=== PATIENT | male | born 1965 | race Caucasian/White ===

== ENCOUNTER 2017-07-13 18:09 | Observation (INO) | payer MEDICARE, MEDICAID ==
[~2017-07-13] VITALS: Ht 195.6 cm; Wt 65.5 kg
[~2017-07-13 18:09] MED LIST: ASPI81 PO; CYCL1PAK PO; METO50TA PO; ZOCO40TA PO
[2017-07-13 18:20] VITALS: BP 177/91; PULSE 110; RESP 32; TEMP 99.9; O2SAT 100; O2SAT 97
[2017-07-13] MEDS ORDERED: SODIUM CHLOR 0.9% 1000 ML INJ 1,000 ML IV ONE (18:27)
[2017-07-13] MEDS ORDERED: SODIUM CHLOR 0.9% 1000 ML INJ 800 ML IV ONE (18:27)
[2017-07-13] MEDS ORDERED: ACETAMINOPHEN 325 MG TAB PO ONE (18:30)
--- NOTE | 2017-07-13 18:32 | PD ---
HPI Chief Complaint: Respiratory Symptoms Time Seen by Provider: 18:21 Travel History International Travel<30 days: No Contact w/Intl Traveler<30days: No Traveled to known affect area: No History of Present Illness HPI 52-year-old male with history of muscular dystrophy, wheelchair bound, CAD, brought in by ambulance from home for evaluation of cough, shortness of breath, chest pain, generalized malaise. Patient believes that he may have the flu. He reports 1 week of cough. Today while he was coughing he experienced some sharp chest pain. He states that this has improved. He feels as though he cannot take a deep breath. Cough is productive of yellowish sputum. No hemoptysis. He believes he may have a fever. States his at home is sick with upper respiratory symptoms. PFSH Past Medical History Arthritis: No Asthma: No Autoimmune Disease: No Blood Disorders: No Anxiety: No Depression: No Heart Rhythm Problems: No Cancer: No Cardiovascular Problems: Yes High Cholesterol: No Chemotherapy: No Chest Pain: No Congestive Heart Failure: No COPD: No Cerebrovascular Accident: Yes Diabetes: No Diminished Hearing: No Endocrine: No GERD: No Glaucoma: No Genitourinary: No Headaches: Yes Hepatitis: No Hiatal Hernia: No Hypertension: No Immune Disorder: No Implanted Vascular Access Dvce: Yes Kidney Stones: No Musculoskeletal: Yes () Neurologic: Yes Psychiatric: No Reproductive: No Respiratory: No Myocardial Infarction: Yes Radiation Therapy: No Renal Failure: No Sickle Cell Disease: No Sleep Apnea: Yes Thyroid Disease: No Ulcer: No Tetanus Vaccination: Unknown Influenza Vaccination: No Past Surgical History Abdominal Surgery: No AICD: No Appendectomy: No Arteriovenous Shunt: No Cardiac Surgery: No Cholecystectomy: No Ear Surgery: No Endocrine Surgery: No Eye Surgery: No Genitourinary Surgery: No Gynecologic Surgery: No Insulin Pump: No Joint Replacement: Yes (R LEG) Oral Surgery: No Pacemaker: No Thoracic Surgery: No Other Surgery: Yes (Lt. hand ganglion ) Social History Alcohol Use: No Tobacco Use: Yes (1 PPD) Substance Use: Yes (Marijuana) Allergies-Medications (Allergen,Severity, Reaction): Coded Allergies: tramadol (Verified Allergy, Intermediate, Hives, 07/13/17) penicillin G (Verified Allergy, Unknown, States doesn't know, 07/13/17) Reported Meds & Prescriptions Reported Meds & Active Scripts Active Reported Zofran (Ondansetron HCl) 4 Mg Tab 4 Mg PO Q6HR PRN Metoprolol Tartrate 25 Mg Tab 25 Mg PO BID Baclofen 20 Mg Tab 20 Mg PO QID Flexeril (Cyclobenzaprine HCl) 10 Mg Tab 10 Mg PO DAILY Ranitidine (Ranitidine HCl) 300 Mg Tab 300 Mg PO DAILY Gabapentin 600 Mg Tab 600 Mg PO BID Sucralfate 1 Gram Tab 1 Gm PO TID on empty stomach Pravastatin 40 Mg Tab 40 Mg PO DAILY Omeprazole 20 Mg Tab 20 Mg PO DAILY Review of Systems Except as stated in HPI: all other systems reviewed are Neg Physical Exam Narrative GENERAL: Well-developed, well-nourished, awake, tachypneic SKIN: Focused skin assessment warm/dry. HEAD: Atraumatic. Normocephalic. EYES: Strabismus with right eye looking laterally, right cornea is clouded. No scleral icterus. No injection or drainage. ENT: Mucous membranes pink and moist. NECK: Trachea midline. No JVD. No nuchal rigidity. CARDIOVASCULAR: Tachycardic, rate 110, regular. RESPIRATORY: Tachypneic. Speaking a few words at a time. Clear to auscultation. Breath sounds equal bilaterally. GASTROINTESTINAL: Abdomen soft, non-tender, nondistended. MUSCULOSKELETAL: No obvious deformities. No clubbing. No cyanosis. No edema. Bilateral calves are supple, nontender. NEUROLOGICAL: Awake and alert. No obvious cranial nerve deficits. Generalized motor weakness with legs worse than arms. Normal speech. PSYCHIATRIC: Appropriate mood and affect; insight and judgment normal. Data Data Last Documented VS Vital Signs Date Time Temp Pulse Resp B/P (MAP) Pulse Ox O2 Delivery O2 Flow Rate FiO2 07/13/17 19:03 98 119/74 (89) 98 Room Air 07/13/17 18:20 32 07/13/17 18:20 99.9 Orders Orders Sepsis Workup Initiated (07/13/17 ) Complete Blood Count With Diff (07/13/17 18:27) Comprehensive Metabolic Panel (07/13/17 18:27) Prothrombin Time / Inr (Pt) (07/13/17 18:27) Act Partial Throm Time (Ptt) (07/13/17 18:27) Lactic Acid Sepsis Protocol (07/13/17 18:27) Ckmb (Isoenzyme) Profile (07/13/17 18:27) Troponin I (07/13/17 18:27) Urinalysis - C+S If Indicated (07/13/17 18:27) Influenzae A/B Antigen (07/13/17 18:) Blood Culture (07/13/17 18:27) Chest, Single Ap (07/13/17 18:27) Ecg Monitoring (07/13/17 18:27) Iv Access Insert/Monitor (07/13/17 18:) Oximetry (07/13/17 18:) Acetaminophen (Tylenol) (07/13/17 18:30) Sodium Chlor 0.9% 1000 Ml Inj (Ns 1000 M (07/13/17 18:27) Sodium Chlor 0.9% 1000 Ml Inj (Ns 1000 M (07/13/17 18:27) Ceftriaxone Inj (Rocephin Inj) (07/13/17 19:45) Azithromycin Inj (Zithromax Inj) (07/13/17 19:45) Albuterol-Ipratropium Neb (Duoneb Neb) (07/13/17 19:45) Admit Order (Ed Use Only) (07/13/17 19:48) Labs Laboratory Tests Test 07/13/17 18:30 07/13/17 18:50 White Blood Count 13.1 TH/MM3 Red Blood Count 5.07 MIL/MM3 Hemoglobin 15.7 GM/DL Hematocrit 45.8 % Mean Corpuscular Volume 90.3 FL Mean Corpuscular Hemoglobin 31.0 PG Mean Corpuscular Hemoglobin Concent 34.3 % Red Cell Distribution Width 13.2 % Platelet Count 287 TH/MM3 Mean Platelet Volume 9.6 FL Neutrophils (%) (Auto) 80.8 % Lymphocytes (%) (Auto) 9.1 % Monocytes (%) (Auto) 8.9 % Eosinophils (%) (Auto) 0.9 % Basophils (%) (Auto) 0.3 % Neutrophils # (Auto) 10.6 TH/MM3 Lymphocytes # (Auto) 1.2 TH/MM3 Monocytes # (Auto) 1.2 TH/MM3 Eosinophils # (Auto) 0.1 TH/MM3 Basophils # (Auto) 0.0 TH/MM3 CBC Comment DIFF FINAL Differential Comment Prothrombin Time 10.7 SEC Prothromb Time International Ratio 1.1 RATIO Activated Partial Thromboplast Time 32.1 SEC Blood Urea Nitrogen 15 MG/DL Creatinine 0.85 MG/DL Random Glucose 95 MG/DL Total Protein 6.8 GM/DL Albumin 3.2 GM/DL Calcium Level 8.4 MG/DL Alkaline Phosphatase 73 U/L Aspartate Amino Transf (AST/SGOT) 9 U/L Alanine Aminotransferase (ALT/SGPT) 9 U/L Total Bilirubin 0.6 MG/DL Sodium Level 135 MEQ/L Potassium Level 3.5 MEQ/L Chloride Level 105 MEQ/L Carbon Dioxide Level 16.9 MEQ/L Anion Gap 13 MEQ/L Estimat Glomerular Filtration Rate 95 ML/MIN Total Creatine Kinase 49 U/L Troponin I LESS THAN 0.02 NG/ML Urine Collection Type CLEAN CATCH Urine Color YELLOW Urine Turbidity CLEAR Urine pH 5.5 Urine Specific [place] 1.020 Urine Protein NEG mg/dL Urine Glucose (UA) NEG mg/dL Urine Ketones 80 OR GREATER mg/dL Urine Occult Blood TRACE Urine Nitrite NEG Urine Bilirubin NEG Urine Urobilinogen 0.2 MG/DL Urine Leukocyte Esterase TRACE Urine RBC 0-3 /hpf Urine WBC 0-2 /hpf Urine Squamous Epithelial Cells 0-5 /hpf Urine Amorphous Sediment SMALL Urine Mucus MOD /lpf Microscopic Urinalysis Comment CULT NOT INDICATED Lactic Acid Level 3.8 mmol/L MDM Medical Decision Making Medical Screen Exam Complete: Yes Emergency Medical Condition: Yes Interpretation(s) EKG: Sinus, rate 108, normal axis, incomplete RBBB, no acute ischemic abnormality. Differential Diagnosis Sepsis, pneumonia, influenza, ACS, PE, pericarditis, metabolic abnormality Narrative Course Initial vital signs show heart rate 110, blood pressure 177/91, pulse ox 100% on room air, oral temperature 99.9F. CBC: WBC 13.1, hemoglobin 15.7, hematocrit 45.8, platelets 287, neutrophils 81%. CMP is essentially unremarkable. Cardiac enzymes are negative. Lactic acid is 3.8. UA shows 80 or greater ketones, not suggestive of UTI. Influenza is negative. Chest x-ray: No acute disease. The patient was given 2 L normal saline IV and Tylenol with improvement in heart rate to 95. While in the emergency department his respiratory status has significantly improved. There are no wheezes on exam. He has been coughing. He likely has bronchitis. He meets sepsis criteria. He will be started on IV Rocephin and IV azithromycin and will be provided a DuoNeb treatment. He will be admitted for further treatment and evaluation. Case discussed with hospitalist Dr. Garcia who will admit the patient to her service. Diagnosis Primary Impression: Sepsis Qualified Codes: A41.9 - Sepsis, unspecified organism Additional Impression: Bronchitis Admitting Information Admitting Physician Requests: it Dereje Muller MD Jul 13, 2017 18:31
[2017-07-13] MEDS ORDERED: RANI300T PO (18:33)
[2017-07-13] MEDS ORDERED: SUCR1TAB PO (18:33)
[2017-07-13] MEDS ORDERED: CYCL10TA PO (18:33)
[2017-07-13] MEDS ORDERED: GABA600T PO (18:33)
[2017-07-13] MEDS ORDERED: METO25TA3 PO (18:33)
[2017-07-13] MEDS ORDERED: ZOFR4TAB PO (18:33)
[2017-07-13] MEDS ORDERED: PRAV40TA2 PO (18:33)
[2017-07-13] MEDS ORDERED: BACL20TA PO (18:33)
[2017-07-13] MEDS ORDERED: OMEP20TA93 PO (18:33)
[2017-07-13 18:45] VITALS: O2SAT 100
[2017-07-13 19:03] VITALS: BP 119/74; PULSE 98; O2SAT 98
[2017-07-13 19:08] LABS: AUTOMATED NEUTROPHIL # 10.6 TH/MM3 (1.8-7.7); BASOPHIL % 0.3 % (0.0-2.0); EOSINOPHIL # 0.1 TH/MM3 (0-0.4); EOSINOPHIL % 0.9 % (0.0-4.0); HEMATOCRIT 45.8 % (39.0-51.0); HEMOGLOBIN 15.7 GM/DL (13.0-17.0); LYMPH % 9.1 % (9.0-44.0); LYMPHOCYTE # 1.2 TH/MM3 (1.0-4.8); MEAN CELL VOLUME 90.3 FL (80.0-100.0); MEAN CORPUSCULAR HGB CONC 34.3 % (32.0-36.0); MEAN PLATELET VOLUME 9.6 FL (7.0-11.0); MONO % 8.9 % (0.0-8.0); MONOCYTE # 1.2 TH/MM3 (0-0.9); NEUT % 80.8 % (16.0-70.0); PLATELET COUNT 287 TH/MM3 (150-450); RED BLOOD COUNT 5.07 MIL/MM3 (4.50-5.90); RED CELL DISTRIBUTION WIDTH 13.2 % (11.6-17.2); WHITE BLOOD COUNT 13.1 TH/MM3 (4.0-11.0)
[2017-07-13 19:08] LABS: BLOOD, URINE TRACE (NEG); GLUCOSE,URINE NEG (NEG); KETONE, URINE 80 OR GREATER mg/dL (NEG); NITRITE,URINE NEG (NEG); PH, URINE 5.5 (5.0-8.5); URINE COLOR YELLOW (YELLW/STRAW); URINE LEUKOCYTE ESTERASE TRACE (NEG)
[2017-07-13 19:17] LABS: CHLORIDE 105 MEQ/L (98-107); SODIUM (NA) 135 MEQ/L (136-145)
--- NOTE | 2017-07-13 19:17 | RADRPT ---
EXAM DATE/TIME: 07/13/2017 18:29 [facility] COMPARISON: No previous studies available for comparison. INDICATIONS : Fever, cough, shortness of breath. MEDICAL HISTORY : Myocardial infarction. Muscular dystrophy. SURGICAL HISTORY : None. ENCOUNTER: Initial ACUITY: 1 week PAIN SCORE: 0/10 LOCATION: Bilateral chest FINDINGS: A single view of the chest demonstrates the lungs to be symmetrically aerated without evidence of mas s, infiltrate or effusion. The cardiomediastinal contours are unremarkable. Osseous structures are intact. CONCLUSION: No acute disease. Jason Arora MD on July 13, 2017 at 19:11 Board Certified Radiologist. This report was verified electronically.
[2017-07-13 19:19] LABS: LACTIC ACID SEPSIS PROTOCOL 3.8 mmol/L (0.4-2.0)
[2017-07-13 19:21] LABS: ALBUMIN 3.2 GM/DL (3.4-5.0); BICARBONATE 16.9 MEQ/L (21.0-32.0); BLOOD UREA NITROGEN 15 MG/DL (7-18); CALCIUM 8.4 MG/DL (8.5-10.1); GLUCOSE,RANDOM 95 MG/DL (74-106)
[2017-07-13 19:22] LABS: BILIRUBIN, URINE NEG (NEG)
[2017-07-13 19:23] LABS: INTERNATIONAL NORMALIZED RATIO 1.1 RATIO; PROTHROMBIN TIME - PATIENT 10.7 SEC (9.8-11.6)
[2017-07-13 19:24] LABS: ALT (GPT) 9 U/L (12-78); AST (GOT) 9 U/L (15-37); CREATININE 0.85 MG/DL (0.60-1.30); GLOMERULAR FILTRATION RATE 95 ML/MIN (>89)
[2017-07-13 19:26] LABS: MUCUS URINE MOD /lpf (OCC); SQUAMOUS EPITHELIAL CELL URINE 0-5 /hpf (0-5)
[2017-07-13 19:26] LABS: TOTAL BILIRUBIN ADULT 0.6 MG/DL (0.2-1.0); TOTAL PROTEIN 6.8 GM/DL (6.4-8.2)
[2017-07-13 19:27] LABS: ALKALINE PHOSPHATASE 73 U/L (45-117)
[2017-07-13 19:27] LABS: RBC, URINE 0-3 /hpf (0-3)
[2017-07-13 19:29] LABS: AMORPHOUS SEDIMENT, URINE SMALL; WBC, URINE 0-2 /hpf (0-5)
[2017-07-13 19:29] LABS: TROPONIN I LESS THAN 0.02 NG/ML (0.02-0.05)
[2017-07-13] MEDS ORDERED: RESP: ALBUTEROL 2.5 MG/IPRATROPIUM 0.5 MG NEB (SCH) INH ONE (19:45)
[2017-07-13] MEDS ORDERED: cefTRIAXone INJ 1,000 MG in SODIUM CHLORIDE 0.9% INJ 100 ML IV ONE (19:45)
[2017-07-13] MEDS ORDERED: AZITHROMYCIN INJ 500 MG in SODIUM CHLOR 0.9% 250 ML INJ 250 ML IV ONE (19:45)
[2017-07-13 19:52] VITALS: TEMP 98.1
[2017-07-13] MEDS ORDERED: SODIUM CHLORIDE 0.9% FLUSH 10 ML FLUSH IV FLUSH PRN (20:00)
[2017-07-13] MEDS ORDERED: NALOXONE HCL 0.4 MG/ML AMP IV PUSH PRN (20:00)
[2017-07-13 20:36] VITALS: BP 121/83; PULSE 98; RESP 20; TEMP 98; O2SAT 97
[2017-07-13] MEDS: SODIUM CHLORIDE 0.9% FLUSH 10 ML FLUSH IV FLUSH SCH (21:00)
[2017-07-13] MEDS: SODIUM CHLOR 0.9% 1000 ML INJ 1,000 ML IV SCH (21:40)
[2017-07-13] MEDS ORDERED: CYCLOBENZAPRINE HCL 10 MG TAB PO ONE (22:15)
[2017-07-13] MEDS ORDERED: BACLOFEN 20 MG TAB PO PRN (22:15)
[2017-07-13] MEDS: ACETAMINOPHEN/HYDROcodone 325 MG/5 MG TAB PO PRN (22:25)
[2017-07-14] VITALS (8 sets, daily range): BP systolic 97–138; BP diastolic 64–93; PULSE 70–90; RESP 20; TEMP 96.7–99.1; O2SAT 96–99
[2017-07-14 00:49] LABS: TROPONIN I LESS THAN 0.02 NG/ML (0.02-0.05)
[2017-07-14] MEDS: SODIUM CHLOR 0.9% 1000 ML INJ 1,000 ML IV SCH ×3 (05:47→20:20)
[2017-07-14 06:50] LABS: AUTOMATED NEUTROPHIL # 5.4 TH/MM3 (1.8-7.7); BASOPHIL % 0.3 % (0.0-2.0); EOSINOPHIL # 0.4 TH/MM3 (0-0.4); EOSINOPHIL % 4.6 % (0.0-4.0); HEMATOCRIT 36.2 % (39.0-51.0); HEMOGLOBIN 12.5 GM/DL (13.0-17.0); LYMPH % 20.8 % (9.0-44.0); LYMPHOCYTE # 1.8 TH/MM3 (1.0-4.8); MEAN CELL VOLUME 90.4 FL (80.0-100.0); MEAN CORPUSCULAR HEMOGLOBIN 31.2 PG (27.0-34.0); MEAN CORPUSCULAR HGB CONC 34.5 % (32.0-36.0); MEAN PLATELET VOLUME 8.9 FL (7.0-11.0); MONO % 11.8 % (0.0-8.0); NEUT % 62.5 % (16.0-70.0); PLATELET COUNT 226 TH/MM3 (150-450); RED BLOOD COUNT 4.01 MIL/MM3 (4.50-5.90); RED CELL DISTRIBUTION WIDTH 13.6 % (11.6-17.2); WHITE BLOOD COUNT 8.6 TH/MM3 (4.0-11.0)
[2017-07-14 07:04] LABS: CHLORIDE 108 MEQ/L (98-107); SODIUM (NA) 139 MEQ/L (136-145)
[2017-07-14 07:08] LABS: CALCIUM 7.7 MG/DL (8.5-10.1)
[2017-07-14 07:09] LABS: BICARBONATE 23.3 MEQ/L (21.0-32.0); BLOOD UREA NITROGEN 12 MG/DL (7-18); GLUCOSE,RANDOM 85 MG/DL (74-106)
[2017-07-14 07:12] LABS: CREATININE 0.62 MG/DL (0.60-1.30); GLOMERULAR FILTRATION RATE 137 ML/MIN (>89)
[2017-07-14 07:17] LABS: TROPONIN I LESS THAN 0.02 NG/ML (0.02-0.05)
--- NOTE | 2017-07-14 08:45 | EKG ---
Date Performed: 07/13/2017 Time Performed: 18:15:19 PTAGE: 52 years EKG: SINUS TACHYCARDIA POSSIBLE LEFT ATRIAL ENLARGEMENT ABNORMAL RHYTHM ECG PREVIOUS TRACING : 09/20/2008 18.47 Compared to previous tracing, heart rate has increased. DOCTOR: Warner Keller Interpretating Date/Time 07/14/2017 08:37:15
[2017-07-14] MEDS: SODIUM CHLORIDE 0.9% FLUSH 10 ML FLUSH IV FLUSH SCH ×2 (09:00→20:20)
--- NOTE | 2017-07-14 11:26 | HHI.HP ---
HPI [facility] Primary Care Physician No Primary Care Physician Admission Diagnosis Sepsis, bronchitis Diagnoses: Travel History International Travel<30 Days: No Contact w/Intl Traveler <30 Da: No Traveled to Known Affected Are: No History of Present Illness 52-year-old male with a history of coronary artery disease, muscular dystrophy, esophageal stricture, who presents with a one-week history of worsening cough productive of chunky sputum, progressive worsening of shortness of breath. Patient reports experiencing dull chest pressure yesterday afternoon prompting his presentation to the ER. Patient reports due to his sinus congestion he asked his pharmacist if he could take a decongestant. His pharmacist said that with the heart meds that he is on he could not take the sinus decongestant. Thus, on Thursday he discontinued his heart medications and took the decongestant instead. Review of Systems Except as stated in HPI: all other systems reviewed are Neg Past Family Social History Past Medical History Muscular dystrophy Coronary artery disease status post 5 stents over 2 years ago History of multiple TIAs Chronic pain Hyperlipidemia GERD History of gastric ulcer Past Surgical History Multiple cardiac stents with most recent cardiac cath over 2 years ago. Spinal surgery Titanium naomi in right leg Reported Medications Reported Meds & Active Scripts Active Reported Zofran (Ondansetron HCl) 4 Mg Tab 4 Mg PO Q6HR PRN Metoprolol Tartrate 25 Mg Tab 25 Mg PO BID Baclofen 20 Mg Tab 20 Mg PO QID Flexeril (Cyclobenzaprine HCl) 10 Mg Tab 10 Mg PO DAILY Ranitidine (Ranitidine HCl) 300 Mg Tab 300 Mg PO DAILY Gabapentin 600 Mg Tab 600 Mg PO BID Sucralfate 1 Gram Tab 1 Gm PO TID on empty stomach Pravastatin 40 Mg Tab 40 Mg PO DAILY Omeprazole 20 Mg Tab 20 Mg PO DAILY Allergies: Coded Allergies: tramadol (Verified Allergy, Intermediate, Hives, 07/13/17) penicillin G (Verified Allergy, Unknown, States doesn't know, 07/13/17) Family History Mother secondary to what sounds to be bronchitis. Father due to occupational hazard when patient was 9 years old Social History Patient smoked 1 pack per day for the past 35 years. Drinks alcohol rarely. Has medical marijuana card, however denies any other illicit drugs Physical Exam Vital Signs Vital Signs Date Time Temp Pulse Resp B/P (MAP) Pulse Ox O2 Delivery O2 Flow Rate FiO2 07/14/17 08:00 97.1 90 20 138/93 (108) 99 07/14/17 04:00 97.7 88 20 97/64 (75) 96 07/14/17 00:00 97.5 86 20 108/72 (84) 98 07/13/17 23:48 20 07/13/17 20:36 98.0 98 20 121/83 (96) 97 07/13/17 20:31 07/13/17 19:52 98.1 07/13/17 19:03 98 119/74 (89) 98 Room Air 07/13/17 18:45 100 Room Air 07/13/17 18:20 110 32 100 Room Air 07/13/17 18:20 99.9 110 32 177/91 (119) 100 Room Air 07/13/17 18:20 99.9 110 32 177/91 (119) 97 Physical Exam GENERAL: This is a well-nourished, well-developed patient, in no apparent distress. Alert and oriented 3. Visualize sputum at bedside which appears to have chunks of what may be food. SKIN: No rashes, ecchymoses or lesions. Cool and dry. HEAD: Atraumatic. Normocephalic. No temporal or scalp tenderness. EYES: Left pupil reactive. Right pupil obscured. Patient reports this is chronic.. Extraocular motions intact. No scleral icterus. No injection or drainage. ENT: Nose without bleeding, purulent drainage or septal hematoma. Throat without erythema, tonsillar hypertrophy or exudate. Uvula midline. Airway patent. NECK: Trachea midline. No JVD or lymphadenopathy. Supple, nontender, no meningeal signs. CARDIOVASCULAR: Regular rate and rhythm without murmurs, gallops, or rubs. RESPIRATORY: Clear to auscultation. Breath sounds equal bilaterally. No wheezes , rales, or rhonchi. GASTROINTESTINAL: Abdomen soft, non-tender, nondistended. No hepato-splenomegaly , or palpable masses. No guarding. MUSCULOSKELETAL: Extremities without clubbing, cyanosis, or edema. No joint tenderness, effusion, or edema noted. No calf tenderness. Negative Homans sign bilaterally. NEUROLOGICAL: Awake and alert. Cranial nerves II through XII intact. Motor and sensory grossly within normal limits. Five out of 5 muscle strength in all muscle groups. Normal speech. Laboratory Laboratory Tests Test 07/13/17 18:30 07/13/17 18:50 07/13/17 21:10 07/14/17 00:12 White Blood Count 13.1 Red Blood Count 5.07 Hemoglobin 15.7 Hematocrit 45.8 Mean Corpuscular Volume 90.3 Mean Corpuscular Hemoglobin 31.0 Mean Corpuscular Hemoglobin Concent 34.3 Red Cell Distribution Width 13.2 Platelet Count 287 Mean Platelet Volume 9.6 Neutrophils (%) (Auto) 80.8 Lymphocytes (%) (Auto) 9.1 Monocytes (%) (Auto) 8.9 Eosinophils (%) (Auto) 0.9 Basophils (%) (Auto) 0.3 Neutrophils # (Auto) 10.6 Lymphocytes # (Auto) 1.2 Monocytes # (Auto) 1.2 Eosinophils # (Auto) 0.1 Basophils # (Auto) 0.0 CBC Comment DIFF FINAL Differential Comment Prothrombin Time 10.7 Prothromb Time International Ratio 1.1 Activated Partial Thromboplast Time 32.1 Blood Urea Nitrogen 15 Creatinine 0.85 Random Glucose 95 Total Protein 6.8 Albumin 3.2 Calcium Level 8.4 Alkaline Phosphatase 73 Aspartate Amino Transf (AST/SGOT) 9 Alanine Aminotransferase (ALT/SGPT) 9 Total Bilirubin 0.6 Sodium Level 135 Potassium Level 3.5 Chloride Level 105 Carbon Dioxide Level 16.9 Anion Gap 13 Estimat Glomerular Filtration Rate 95 Total Creatine Kinase 49 67 Troponin I LESS THAN 0.02 LESS THAN 0.02 Urine Collection Type CLEAN CATCH Urine Color YELLOW Urine Turbidity CLEAR Urine pH 5.5 Urine Specific [place] 1.020 Urine Protein NEG Urine Glucose (UA) NEG Urine Ketones 80 OR GREATER Urine Occult Blood TRACE Urine Nitrite NEG Urine Bilirubin NEG Urine Urobilinogen 0.2 Urine Leukocyte Esterase TRACE Urine RBC 0-3 Urine WBC 0-2 Urine Squamous Epithelial Cells 0-5 Urine Amorphous Sediment SMALL Urine Mucus MOD Microscopic Urinalysis Comment CULT NOT INDICATED Lactic Acid Level 3.8 0.7 Test 07/14/17 05:47 White Blood Count 8.6 Red Blood Count 4.01 Hemoglobin 12.5 Hematocrit 36.2 Mean Corpuscular Volume 90.4 Mean Corpuscular Hemoglobin 31.2 Mean Corpuscular Hemoglobin Concent 34.5 Red Cell Distribution Width 13.6 Platelet Count 226 Mean Platelet Volume 8.9 Neutrophils (%) (Auto) 62.5 Lymphocytes (%) (Auto) 20.8 Monocytes (%) (Auto) 11.8 Eosinophils (%) (Auto) 4.6 Basophils (%) (Auto) 0.3 Neutrophils # (Auto) 5.4 Lymphocytes # (Auto) 1.8 Monocytes # (Auto) 1.0 Eosinophils # (Auto) 0.4 Basophils # (Auto) 0.0 CBC Comment DIFF FINAL Differential Comment Blood Urea Nitrogen 12 Creatinine 0.62 Random Glucose 85 Calcium Level 7.7 Sodium Level 139 Potassium Level 3.9 Chloride Level 108 Carbon Dioxide Level 23.3 Anion Gap 8 Estimat Glomerular Filtration Rate 137 Total Creatine Kinase 74 Troponin I LESS THAN 0.02 Date/Time Source Procedure Growth Status 07/13/17 18:40 Blood Peripheral Aerobic Blood Culture - Preliminary NO GROWTH IN 1 DAY Resulted 07/13/17 18:40 Blood Peripheral Anaerobic Blood Culture - Preliminary NO GROWTH IN 1 DAY Resulted 07/13/17 18:35 Nasal Washing Influenza Types A,B Antigen (MARIANO) - Final NEGATIVE FOR FLU A AND B ANTIGEN.... Complete Result Diagram: 07/14/17 0547 07/14/17 0547 Imaging Last Impressions Chest X-Ray 07/13/171826 Signed Impressions: Service Date/Time: Thursday, July 13, 2017 18:29 - CONCLUSION: No acute disease. MD Sylvia Barthi VTE Risk Assessment Caprini VTE Risk Assessment: No/Low Risk (score <= 1) Caprini Risk Assessment Model Point Value = 1 Point Value = 2 Point Value = 3 Point Value = 5 Age 41-60 Minor surgery BMI > 25 kg/m2 Swollen legs Varicose veins or History of unexplained or recurrent spontaneous Oral contraceptives or hormone replacement Sepsis (< 1 month) Serious lung disease, including pneumonia (< 1 month) Abnormal pulmonary function Acute myocardial infarction Congestive heart failure (< 1 month) History of inflammatory bowel disease Medical patient at bed rest Age 61-74 Arthroscopic surgery Major open surgery (> 45 min) Laparoscopic surgery (> 45 min) Malignancy Confined to bed (> 72 hours) Immobilizing plaster cast Central venous access Age >= 75 History of VTE Family history of VTE Factor V Leiden Prothrombin [id number] Lupus anticoagulant Anticardiolipin antibodies Elevated serum homocysteine Heparin-induced thrombocytopenia Other congenital or acquired thrombophilia Stroke (< 1 month) Elective arthroplasty Hip, pelvis, or leg fracture Acute spinal cord injury (< 1 month) Prophylaxis Regimen Total Risk Factor Score Risk Level Prophylaxis Regimen 0-1 Low Early ambulation 2 Moderate Order ONE of the following: *Sequential Compression Device (SCD) *Heparin 5000 units SQ BID 3-4 Higher Order ONE of the following medications: *Heparin 5000 units SQ TID *Enoxaparin/Lovenox 40 mg SQ daily (WT < 150 kg, CrCl > 30 mL/min) *Enoxaparin/Lovenox 30 mg SQ daily (WT < 150 kg, CrCl > 10-29 mL/min) *Enoxaparin/Lovenox 30 mg SQ BID (WT < 150 kg, CrCl > 30 mL/min) AND/OR *Sequential Compression Device (SCD) 5 or more Highest Order ONE of the following medications: *Heparin 5000 units SQ TID (Preferred with Epidurals) *Enoxaparin/Lovenox 40 mg SQ daily (WT < 150 kg, CrCl > 30 mL/min) *Enoxaparin/Lovenox 30 mg SQ daily (WT < 150 kg, CrCl > 10-29 mL/min) *Enoxaparin/Lovenox 30 mg SQ BID (WT < 150 kg, CrCl > 30 mL/min) AND *Sequential Compression Device (SCD) Assessment and Plan Assessment and Plan //Sepsis on admission = Cultures pending Chest x-ray with no acute findings. Likely secondary to bronchitis -Continue broad-spectrum antibiotics. -White count is improving. Tachycardia improving. //Bronchitis //History of esophageal stricture -Chest x-ray with no acute findings -Suspect that cough could be secondary to esophageal stricture with reflux. -Order barium swallow Continue antibiotics, nebs. //GERD. Chronic. Continue medication //CAD //Hyperlipidemia //Chest pain on admission -Troponins negative 3. No concerning changes on EKG. Chest x-ray negative as above. = This is likely demand ischemia secondary to sepsis, bronchitis, having been off his cardiac metoprolol, and on decongestant since Thursday //Chronic pain //Muscular dystrophy Continue home medications. //Suspected medical noncompliance Patient counseled on necessity of continuing his home medications. He may benefit from home health for medication management. consult PT Discussed Condition With Patient, nurse, at bedside Physician Certification 2 Midnight Certification Type: Continued Stay Order for Inpatient Services The services are ordered in accordance with Medicare regulations or non- Medicare payer requirements, as applicable. In the case of services not specified as inpatient-only, they are appropriately provided as inpatient services in accordance with the 2-midnight benchmark. Estimated LOS (days): 2 days is the estimated time the patient will need to remain in the hospital, assuming treatment plan goals are met and no additional complications. Post-Hospital Plan: Home Bo Vang MD Jul 14, 2017 11:26
[2017-07-14] MEDS: BACLOFEN 20 MG TAB PO SCH ×3 (12:09→20:21)
[2017-07-14] MEDS ORDERED: SUCRALFATE 1 GM TAB PO SCH (13:00)
--- NOTE | 2017-07-14 14:06 | RADRPT ---
EXAM DATE/TIME: 07/14/2017 11:53 [facility] COMPARISON: No previous studies available for comparison. INDICATIONS : Esophageal stricture. FLUORO TIME: 1.1 minutes IMAGE COUNT: 12 CONTRAST: 1. Liquid E-Z Paque Barium Sulfate (60% w/v, 41% w.w) MEDICAL HISTORY : Hypertension. Myocardial infarction. Stroke. SURGICAL HISTORY : Cardiac stents. Cervical spine surgery. Esophageal dilitation. ENCOUNTER: Initial ACUITY: 4 - 6 months PAIN SCORE: 2/10 LOCATION: Esophagus. FINDINGS: Air-contrast views of the hypopharynx demonstrate a normal mucosal surface without filling defect. R apid sequence images of the hypopharynx and cervical esophagus during the passage of barium demonstra te a normal swallowing function. No evidence of aspiration. Multiphasic examination of the esophagu s demonstrates no esophageal fold thickening, ulceration, or filling defect. A small sliding hiatal h ernia is identified. CONCLUSION: Small sliding hiatal hernia. Otherwise unremarkable study Juan Manuel Joy MD on July 14, 2017 at 14:02 Board Certified Radiologist. This report was verified electronically.
--- NOTE | 2017-07-14 14:53 | EKG ---
Date Performed: 07/14/2017 Time Performed: 06:41:03 PTAGE: 52 years EKG: Sinus rhythm NORMAL ECG PREVIOUS TRACING : 07/14/2017 00.17 No significant change from previous tracing noted. DOCTOR: Warner Keller Interpretating Date/Time 07/14/2017 14:52:13
--- NOTE | 2017-07-14 14:57 | EKG ---
Date Performed: 07/14/2017 Time Performed: 00:17:50 PTAGE: 52 years EKG: Sinus rhythm POSSIBLE RIGHT VENTRICULAR CONDUCTION DELAY BORDERLINE ECG PREVIOUS TRACING : 07/13/2017 18.15 No significant change from previous tracing noted. DOCTOR: Warner Keller Interpretating Date/Time 07/14/2017 14:55:47
[2017-07-14] MEDS: SUCRALFATE 1 GM TAB PO SCH ×2 (17:00→20:21)
[2017-07-14] MEDS ORDERED: cefTRIAXone INJ 1,000 MG in SODIUM CHLORIDE 0.9% INJ 100 ML IV SCH (18:00)
[2017-07-14] MEDS ORDERED: AZITHROMYCIN INJ 500 MG in SODIUM CHLOR 0.9% 250 ML INJ 250 ML IV SCH (20:00)
[2017-07-14] MEDS: METOPROLOL TARTRATE 25 MG TAB PO SCH (20:21)
[2017-07-14] MEDS: GABAPENTIN 300 MG CAP PO SCH (20:21)
[2017-07-14] MEDS ORDERED: ONDANSETRON HCL 4 MG/2 ML VIAL IV PUSH PRN (21:15)
[2017-07-15 00:25] VITALS: BP 137/87; PULSE 69; RESP 20; TEMP 97.3; O2SAT 96
[2017-07-15] MEDS: RESP: ALBUTEROL 2.5 MG/IPRATROPIUM 0.5 MG NEB (PRN) NEB ×2 (00:39→11:46)
[2017-07-15] MEDS: ACETAMINOPHEN/HYDROcodone 325 MG/5 MG TAB PO PRN (02:20)
[2017-07-15 04:14] VITALS: BP 107/59; PULSE 69; RESP 20; TEMP 96.7; O2SAT 97
[2017-07-15] MEDS: SODIUM CHLOR 0.9% 1000 ML INJ 1,000 ML IV SCH (06:32)
[2017-07-15] MEDS ORDERED: PANTOPRAZOLE SOD 40 MG DELAYED RELEASE TAB PO SCH (07:00)
[2017-07-15 07:11] VITALS: PULSE 59
[2017-07-15 08:00] VITALS: BP 119/71; PULSE 79; RESP 20; TEMP 98.6; O2SAT 98
[2017-07-15] MEDS: SUCRALFATE 1 GM TAB PO SCH ×2 (08:53→12:19)
[2017-07-15] MEDS: SODIUM CHLORIDE 0.9% FLUSH 10 ML FLUSH IV FLUSH SCH (08:53)
[2017-07-15] MEDS: METOPROLOL TARTRATE 25 MG TAB PO SCH (08:54)
[2017-07-15] MEDS: GABAPENTIN 300 MG CAP PO SCH (08:54)
[2017-07-15] MEDS: BACLOFEN 20 MG TAB PO SCH ×2 (08:54→12:19)
[2017-07-15] MEDS ORDERED: PANTOPRAZOLE SOD 20 MG DELAYED RELEASE TAB PO SCH (09:00)
[2017-07-15] MEDS ORDERED: PRAVASTATIN SOD 40 MG TAB PO SCH (09:00)
[2017-07-15] MEDS ORDERED: CYCLOBENZAPRINE HCL 10 MG TAB PO SCH (09:00)
[2017-07-15] MEDS ORDERED: NEBULIZER1 MI1 (11:05)
[2017-07-15] MEDS ORDERED: PRED10PA PO (11:05)
[2017-07-15] MEDS ORDERED: AZIT500T2 PO (11:05)
[2017-07-15] MEDS ORDERED: Albuterol-Ipratropium Neb NEB (11:05)
--- NOTE | 2017-07-15 11:06 | HHI.DCPOC ---
Discharge Care Plan Diagnosis: (1) Bronchitis Goals to Promote Your Health * To prevent worsening of your condition and complications * To maintain your health at the optimal level Directions to Meet Your Goals Take your medications as prescribed Follow your dietary instruction Follow activity as directed Keep your appointments as scheduled Take your immunizations and boosters as scheduled If your symptoms worsen call your PCP, if no PCP go to Urgent Care Center or Emergency Room Smoking is Dangerous to Your Health. Avoid second hand smoke Call the 24-hour hour crisis hotline for domestic abuse at Zuleika Chaudhary MD Jul 15, 2017 11:06
--- NOTE | 2017-07-15 11:09 | HHI.DS ---
Discharge Summary Admission Date Jul 13, 2017 at 19:48 Discharge Date: Jul 15, 2017 Admitting Diagnosis Sepsis, bronchitis (1) Bronchitis ICD Code: J40 - Bronchitis, not specified as acute or chronic Status: Acute (2) Sepsis ICD Code: A41.9 - Sepsis, unspecified organism Status: Acute Procedures none Brief History - From Admission 52-year-old male with a history of coronary artery disease, muscular dystrophy, esophageal stricture, who presents with a one-week history of worsening cough productive of chunky sputum, progressive worsening of shortness of breath. Patient reports experiencing dull chest pressure yesterday afternoon prompting his presentation to the ER. Patient reports due to his sinus congestion he asked his pharmacist if he could take a decongestant. His pharmacist said that with the heart meds that he is on he could not take the sinus decongestant. Thus, on Thursday he discontinued his heart medications and took the decongestant instead. CBC/BMP: 07/14/17 0547 07/14/17 0547 Significant Findings Laboratory Tests Test 07/13/17 18:30 07/13/17 18:50 07/13/17 21:10 07/14/17 00:12 White Blood Count 13.1 TH/MM3 (4.0-11.0) Neutrophils (%) (Auto) 80.8 % (16.0-70.0) Monocytes (%) (Auto) 8.9 % (0.0-8.0) Neutrophils # (Auto) 10.6 TH/MM3 (1.8-7.7) Monocytes # (Auto) 1.2 TH/MM3 (0-0.9) Activated Partial Thromboplast Time 32.1 SEC (24.3-30.1) Albumin 3.2 GM/DL (3.4-5.0) Calcium Level 8.4 MG/DL (8.5-10.1) Aspartate Amino Transf (AST/SGOT) 9 U/L (15-37) Alanine Aminotransferase (ALT/SGPT) 9 U/L (12-78) Sodium Level 135 MEQ/L (136-145) Carbon Dioxide Level 16.9 MEQ/L (21.0-32.0) Troponin I LESS THAN 0.02 NG/ML LESS THAN 0.02 NG/ML Urine Ketones 80 OR GREATER mg/dL (NEG) Urine Leukocyte Esterase TRACE (NEG) Urine Mucus MOD /lpf (OCC) Lactic Acid Level 3.8 mmol/L (0.4-2.0) Test 07/14/17 05:47 Red Blood Count 4.01 MIL/MM3 (4.50-5.90) Hemoglobin 12.5 GM/DL (13.0-17.0) Hematocrit 36.2 % (39.0-51.0) Monocytes (%) (Auto) 11.8 % (0.0-8.0) Eosinophils (%) (Auto) 4.6 % (0.0-4.0) Monocytes # (Auto) 1.0 TH/MM3 (0-0.9) Calcium Level 7.7 MG/DL (8.5-10.1) Chloride Level 108 MEQ/L (98-107) Troponin I LESS THAN 0.02 NG/ML Imaging Last Impressions Barium Swallow X-Ray 07/14/17 0000 Signed Impressions: Service Date/Time: Friday, July 14, 2017 11:53 - CONCLUSION: Small sliding hiatal hernia. Otherwise unremarkable study Juan Manuel Joy MD Chest X-Ray 07/13/17 1827 Signed Impressions: Service Date/Time: Thursday, July 13, 2017 18:29 - CONCLUSION: No acute disease. Jason Arora MD PE at Discharge GENERAL: This is a well-nourished, well-developed patient, in no apparent distress. CARDIOVASCULAR: Regular rate and rhythm without murmurs, gallops, or rubs. RESPIRATORY: Clear to auscultation. Breath sounds equal bilaterally. No wheezes , rales, or rhonchi. GASTROINTESTINAL: Abdomen soft, non-tender, nondistended. Normal active bowel sounds MUSCULOSKELETAL: Extremities without clubbing, cyanosis, or edema. NEURO: Alert & Oriented x4 to person, place, time, situation. Muscular dystrophy with overall weakness Pt update on day of discharge Patient seen today. Overall improved. Leukocytosis is improved Hospital Course Patient was seen and treated for bronchitis which improved. His sepsis resolved with bronchodilators, and antibiotics and medical management. Patient was counseled to discontinue tobacco Pt Condition on Discharge: Good Discharge Disposition: Discharge Home Discharge Time: <= 30 minutes Discharge Instructions DIET: Follow Instructions for: As Tolerated, No Restrictions Activities you can perform: Regular-No Restrictions Follow up Referrals: PCP Follow-up - 1 Week needs pfts New Medications: Azithromycin (Azithromycin) 500 Mg Tab 500 MG PO DAILY for Infection, #5 TAB 0 Refills Nebulizer (Nebulizer) 1 Mis Mis EA .XX DIRECTED for Breathing Treatment, #1 0 Refills Prednisone (21) 10 mg tab Dose Pack (Prednisone (21) 10 mg tab Dose Pack) 10 Mg Pack 10 MG PO DIRECTED for Inflammation, #1 DSPK 0 Refills [Albuterol-Ipratropium Neb] () 1 AMPULE NEBU 1 AMPULE NEB Q4HR NEB PRN for wheezing, #90 Continued Medications: Baclofen (Baclofen) 20 Mg Tab 20 MG PO QID for Muscle Spasm, TAB 0 Refills Cyclobenzaprine (Flexeril) 10 Mg Tab 10 MG PO DAILY for Muscle Spasm, #90 TAB 0 Refills Gabapentin (Gabapentin) 600 Mg Tab 600 MG PO BID, #60 TAB 0 Refills Metoprolol Tartrate (Metoprolol Tartrate) 25 Mg Tab 25 MG PO BID, #60 TAB 0 Refills Omeprazole (Omeprazole) 20 Mg Tab 20 MG PO DAILY, #30 TAB 0 Refills Ondansetron (Zofran) 4 Mg Tab 4 MG PO Q6HR PRN for NAUSEA OR VOMITING, TAB 0 Refills Pravastatin (Pravastatin) 40 Mg Tab 40 MG PO DAILY for Cholesterol Management, #30 TAB 0 Refills Ranitidine (Ranitidine) 300 Mg Tab 300 MG PO DAILY for Heartburn Management, #30 TAB 0 Refills Sucralfate (Sucralfate) 1 Gram Tab 1 GM PO TID for Duodenal ulcer, #90 TAB 0 Refills on empty stomach Zuleika Chaudhary MD Jul 15, 2017 11:08
--- NOTE | 2017-07-15 12:15 | MB ---
cc: Fernando Michel MD, Jeffrey D MD Willis, [place], Bartan MD DATE: 07/14/2017 REASON FOR CONSULTATION: Asked to see the patient at the request of Dr. Vang for evaluation of GERD and a possible stricture (possible cause of his bronchitis). HISTORY OF PRESENT ILLNESS: The patient is a pleasant 52-year-old white male who has seen Dr. Guajardo in the office. He has been seen for heartburn and dysphagia, upper abdominal pain and gastrointestinal bleeding. The patient was also seen by Dr. Cruz in [facility]. Dr. Cruz performed an upper endoscopy on the patient in October 2015. It showed gastritis, small hiatal hernia. The esophagus was normal, but he stretched the esophagus with an 18 mm Savary dilator. A colonoscopy was also done October 2015 and was unremarkable. Patient also had a gastric emptying scan in January 2017 that was benign, as well as CT scan abdomen and pelvis also benign, except for hiatal hernia. He saw Dr. Guajardo and a capsule endoscopy done reveals AVMs. He had intermittent problems swallowing and heartburn. He still has this. In the office, he is taking Zantac 300 mg and Carafate 4 times a day. He has not been on a PPI recently. In regard to swallowing, Dr. Guajardo suggested a modified barium swallow, but the patient declined. Apparently, he has muscular dystrophy and the working diagnosis is that it possibly could be playing a role in some of his dysphagia. At this time, he still has heartburn. He has dysphagia intermittently to solids and liquids in the upper esophagus. He is currently admitted because of shortness of breath and a productive cough. He says both are a little better at this time. He denies any abdominal pain, melena, hematochezia, diarrhea, constipation. No fever, chills. No odynophagia. PAST MEDICAL HISTORY: As mentioned above. The patient has a history of bronchitis, coronary artery disease, muscular dystrophy, coronary artery disease, esophageal stricture, although I could not find any documentation of esophageal stricture on the testing that Dr. Guajardo and Dr. Cruz did. The patient did have a recent barium swallow in the hospital that was unremarkable. The patient with history of GERD, epigastric pain, AVMs of the small bowel, shortness of breath. No hiatal hernia, hypertension, ND, colon polyps. There is also a possibility of a gastric ulcer. He did have gastritis. He has had cardiac stents. PAST SURGICAL HISTORY: Cardiac stent, spinal surgery, titanium, upper endoscopy, colonoscopy. ALLERGIES: TRAMADOL AND PENICILLIN. MEDICATIONS INCLUDE AN OUTPATIENT: 1. Zofran. 2. Metoprolol 3. Baclofen. 4. Flexeril. 5. Ranitidine 300 mg daily. 6. Gabapentin. 7. Carafate 4 times a day. 8. Pravastatin for dyslipidemia. He told me he was not taking omeprazole, but he told the people in the hospital, he was taking omeprazole. He was taking it. MEDICATIONS IN THE HOSPITAL INCLUDE: 1. Flexeril 2. Pravachol. 3. Protonix 20 mg. 4. Neurontin. 5. Lopressor. 6. Azithromycin. 7. Ceftriaxone. 8. Baclofen. 9. Carafate 3 times a day. 10. [place]. 11. Narcan. FAMILY HISTORY: Cardiovascular disease in mother. No colon cancer and colon polyp. SOCIAL HISTORY: He does smoke for over 30 years. Drinks alcohol occasionally. REVIEW OF SYSTEMS: CONSTITUTIONAL: He had intermittent weight loss. No fever. CARDIOPULMONARY: No chest pain, palpitation, wheezing, short of breath right now. He presented with some discomfort in chest and shortness of breath, but they are better now. GASTROINTESTINAL: Please see above. There has been no melena, hematochezia. Otherwise, unremarkable 12-point review of systems. He does have some muscle aches. PHYSICAL EXAMINATION: VITAL SIGNS: Blood pressure is 129/85, pulse of 80, respiratory rate 20, temperature is 99.1. GENERAL: He is a 52-year-old white male who looks older than stated age. He has multiple tattoos, but appears to be in no acute GI distress. HEENT: His pupils are equal and reactive to light. No obvious scleral icterus. Oropharyngeal, he has dental care. No tongue deviation or candidal lesions, and hearing is intact. NECK: Supple. No thyromegaly. PULMONARY: Lung sounds, rhonchi at the base that clear with coughing. HEART: Regular rate and rhythm. No murmurs are heard. ABDOMEN: Soft, nondistended, nontender. No organomegaly, mass, no signs of hernias. RECTAL: Not done. GAIT: Was not assessed. EXTREMITIES: Had no signs of clubbing or edema. NEUROLOGIC: His cranial 2-12 are grossly intact. No gross sensory deficits. He was alert and oriented x 3. SKIN: Warm and moist. LABORATORY DATA: Reveal that his hemoglobin 15.7, hematocrit 45.8, MCV of 90.3, white blood count 32,100, that was yesterday. With fluid, hemoglobin 12.5, hematocrit 36.2, white blood cell count 8600, platelet count of 226,000. His BUN 15, creatinine 0.85 yesterday, today is 12 and 0.62. Total bilirubin 0.6, SGOT of 9, SGPT of 9, alkaline phosphatase of 73. CPKs have been negative. Troponins have been negative. Albumin slightly low 3.2, total protein 6.8, this is normal. Potassium 3.9, sodium 139. His Protime 10.7, INR 1.0, PTT 32.1, which is slightly elevated. STUDY, IMAGING: Barium swallow done today revealed small sliding hiatal hernia, otherwise unremarkable study. A chest x-ray done yesterday revealed no acute disease. IMPRESSION: 1. Gastroesophageal reflux disease. He is taking Zantac, as well as Carafate. His upper endoscopy, as mentioned above, showed esophagus normal. He was stretched empirically at that time. His barium swallow today was unremarkable. He understands heartburn can cause some of the chest discomfort, as well as intermittent dysphagia. On rare occasion, it can play a roll in bronchitis and a cough. 2. History of dysphagia to both liquids and solids. It has been a long-term problem. The working diagnosis could be related to muscular dystrophy. However, his recent barium swallow was unremarkable. He was stretched before, as mentioned above in regard to esophagus. 3. Upper abdominal pain, better at this time. 4. History of gastrointestinal bleed in the past, stable. 5. Colon polyps. 6. 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 7. History of chest pain, stable at this time. RECOMMENDATIONS: 1. At this time, In regard to his heartburn and possible noncardiac chest pain, the best approach would be to maximize his antireflux program. I suggested we increase the Protonix to 40 mg, 30 minutes before breakfast and 30 minutes for dinner. We will also increase his Carafate to 30 minutes before breakfast, lunch, dinner and bedtime. 2. After he is discharged from the hospital and stable from the current pulmonary standpoint, we will consider a follow up upper endoscopy and dilatation as an outpatient. Right now, I do not think he can tolerate this testing. 3. Otherwise, he is stable from a GI standpoint and we will see him again on as-needed basis as an inpatient. MD RONNIE Peña/FAISAL , 04:24 PM , 05:38 PM [place]
== END 2017-07-15 13:18 | disposition home or self-care (01) ==
LOC: PHED 18:09 → INTOOBSV 19:48 → PHEDA 19:48 → PH3B 20:36
PROVIDERS: ADMIT Hospitalist; ATTEND Hospitalist
DX: A41.9 Sepsis, unspecified organism (principal); J40 Bronchitis, not specified as acute or chronic; R00.0 Tachycardia, unspecified; R13.10 Dysphagia, unspecified; K44.9 Diaphragmatic hernia without obstruction or gangrene; R10.10 Upper abdominal pain, unspecified; K63.5 Polyp of colon; Q27.39 Arteriovenous malformation, other site; I25.10 Atherosclerotic heart disease of native coronary artery without angina pectoris; I25.2 Old myocardial infarction; R94.31 Abnormal electrocardiogram [ECG] [EKG]; E78.5 Hyperlipidemia, unspecified; K21.9 Gastro-esophageal reflux disease without esophagitis; G47.30 Sleep apnea, unspecified; R07.9 Chest pain, unspecified; G89.29 Other chronic pain; G71.0 Muscular dystrophy; F17.200 Nicotine dependence, unspecified, uncomplicated; F12.90 Cannabis use, unspecified, uncomplicated; Z86.73 Personal history of transient ischemic attack (TIA), and cerebral infarction without residual deficits; Z95.5 Presence of coronary angioplasty implant and graft; Z79.899 Other long term (current) drug therapy; Z99.3 Dependence on wheelchair
CPT/HCPCS: 71045; 74230; 80048; 80053; 81001; 82550; 83605; 84484; 85025; 85610; 85730; 87040; 87804; 93005; 94640; 94664; 96361; 96365; 96366; 96367; 96375; 99285; G0378; J0456; J0696; J2405; J7030; J7050